=== PATIENT | female | born 1955 ===

== ENCOUNTER 2025-09-17 10:35 | Outpatient (AMB) | payer BC, MEDICAID, SELFPAY ==
--- NOTE | 2025-09-17 10:38 | A.OFFVIS_ITS ---
Intake Visit Reasons: Follow Up Allergies No Known Allergies Allergy (Verified 09/17/25 10:39) Medication List - Last Reconciled 09/17/25 by Elke Arriaga CNP apixaban (Eliquis) 5 mg PO BID atorvastatin 80 mg PO DAILY levothyroxine 112 mcg PO QAM lorazepam 1 mg PO BEDTIME magnesium gluconate 27 mg PO DAILY metformin ER 1,000 mg PO BID sertraline 100 mg PO QAM triamcinolone acetonide 0.1% appl topical BID HPI Comments Details: She was doing okay. No recurrence of any symptoms. No new weakness. No headaches or dizziness. Balance was okay. She was having some GI side effects with metformin and diabetic medications were being adjusted. She made a complete recovery. 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 She presented to [facility] in 07/2024 with atypical symptoms of a few weeks with transient neurological symptoms in both sides, right and left, and finally presented with some left hemiparesis and was found to have embolic strokes involving the right paramedian bill and the left inferior frontal area. Her CTA of the head and neck were unremarkable. TT echocardiogram was negative. She has made good recovery. [facility] Medical History (Updated 09/17/25 @ 10:44 by Elke Arriaga CNP) Afib Breast cancer Hyperlipidemia Diabetes Surgical History (Updated 09/17/25 @ 10:44 by Elke Arriaga CNP) S/P thyroidectomy Review of Systems Const Denies chills, Denies daytime sleepiness, Denies difficulty sleeping, Denies fatigue, Denies fever(s), Denies frequent falls, Denies headache(s), Denies increased appetite, Denies poor appetite, Denies snoring, Denies weakness, Denies weight gain and Denies weight loss Eyes Denies loss of vision ENT Denies vertigo, Denies dizziness, Denies headache(s) and Denies neck pain Card Denies chest pain at rest, Denies chest pain with activity, Denies syncope, Denies leg edema, Denies palpitations, Denies dyspnea and Denies dyspnea on exertion Resp Denies cough, Denies dyspnea, Denies dyspnea on exertion and Denies snoring GI Denies abdominal pain, Denies constipation, Denies heartburn, Denies diarrhea and Denies nausea Denies urinary frequency, Denies urinary incontinence and Denies urinary urgency Musc Denies abnormal gait, Denies back pain, Denies myalgias, Denies arthralgias, Denies neck pain, Denies numbness and Denies tingling Neuro Denies abnormal gait, Denies vertigo, Denies dizziness, Denies syncope, Denies frequent falls, Denies headache(s), Denies lack of coordination, Denies loss of vision, Denies memory loss, Denies numbness, Denies Other visual disturbances, Denies restless legs, Denies seizure-like activity, Denies tingling, Denies p aresthesias, Denies tremor(s) and Denies weakness Psych Denies anxiety, Denies depression, Denies auditory hallucinations, Denies memory loss and Denies visual hallucinations Endo Denies fatigue and Denies palpitations Physical Exam Const Other: General Appearance:? normal, in no acute distress. Heart:? S1, S2 normal, no murmurs. Lungs:? clear anteriorly and posteriorly. Musculoskeletal:? normal. Extremities:? no edema. Psych:? alert, oriented, cognitive function intact, cooperative with exam. Neuro Other: Abnormal Neurological Findings:?none.? Mental Status: alert and oriented X 3. Normal attention, orientation, memory, and affect. Cranial Nerves: Pupils are equal, round, and reactive to light. External ocular muscles are intact. Visual estrella are full, no ptosis. Face is symmetrical, no facial weakness or droop. Facial sensations are normal. Tongue protrudes in midline. Palate elevates symmetrically. Shoulder shrugging is normal Motor Examination: Normal muscle tone, bulk and strength. No atrophy or fasciculations. No drift of the extended upper extremities. DTR 2+. Plantars are flexor. Sensory Exam: Normal light touch, temperature, pinprick, vibration, and joint- position sensations. Rhomberg sign is absent. Coordination: No ataxia. No titubation. Gait Exam: Within normal limits. Cerebellar Signs: [id number] is okay. Extrapyramidal System: No tremor, rigidity with normal facial expressions. No bradykinesia. No bradyphrenia. Normal arm swing and posture. No propulsion or retropulsion. Speech: Normal. Assessment & Plan Assessment & Plan (1) History of cerebrovascular accident (CVA) due to embolism: Comment: in bill and left frontal Code(s): Z86.73 - Personal history of transient ischemic attack (TIA), and cerebral infarction without residual deficits Category: Medical Plan: Continue current treatment. Coding Level of Care Code Est Pt Level 3 (48671) Diagnoses History of cerebrovascular accident (CVA) due to embolism Z86.73
== END 2025-09-17 10:57 | disposition home or self-care (01) ==
LOC: HO.HSM 10:36
PROVIDERS: Visit Provider Registered Nurse
DX: Z86.73 Personal history of transient ischemic attack (TIA), and cerebral infarction without residual deficits (principal)
CPT/HCPCS: 99213